=== PATIENT | female | born 1990 | race Caucasian/White ===

== ENCOUNTER 2018-10-10 18:33 | Emergency (ER) | payer MEDICAID ==
[~2018-10-10] VITALS: Ht 160 cm; Wt 63.5 kg
[2018-10-10 18:42] VITALS: BP 107/79
--- NOTE | 2018-10-10 19:08 | NUR ---
PT AMB TO RESTROOM, STEADY GAIT
--- NOTE | 2018-10-10 19:25 | NUR ---
PT BIBA C/O ANXIETY X 40 MIN. PT REPORTS TINGLING IN HANDS AND FACE. DENIES SOB, CP, N/V. PT REPORTS NO EXCESS STRESS IN LIFE, BUT STATES SHE HAS TROUBLE SLEEPING. PT STATES 0/10 PAIN AT THIS TIME. FAMILY AT BEDSIDE. PT ACTING APPROPRIATLY, BREATHING EQUAL AND UNLABORED. SAFETY PRECAUTIONS IN PLACE. MEDHX:DENIES RX:DENIES
[2018-10-10] MEDS ORDERED: LORazepam 1 MG TAB PO ONE (19:50)
--- NOTE | 2018-10-10 20:20 | NUR ---
Patient discharged with v/s stable. Patient acting appropriatly, states she feels better and is ready to go home; 0/10 pain at this time. Written and verbal after care instructions given and explained. Patient verbalized understanding. Ambulatory with steady gait. All questions addressed prior to discharge. Advised to follow up with PMD.
[2018-10-10 20:27] VITALS: BP 110/73
== END 2018-10-10 20:20 | disposition home or self-care (01) ==
LOC: MED 18:33
DX: F41.9 Anxiety disorder, unspecified (principal)
CPT/HCPCS: 81002; 81025; 99284